=== PATIENT | female | born 1950 | race Caucasian/White ===

== ENCOUNTER → 2018-02-26 | Outpatient (CLI) | payer MEDICARE, BC ==
[~2018-02-26] MED LIST: CRESTOR 10MG10 MG PO; LEVOXYL0.1 MG PO; MOBIC 7.5MG7.5 MG PO; NORCO 325 MG-7.1 TAB PO; PRILOSEC 20MG20 MG PO; ROXICODONE 55 MG/TAB PO; TUMS500 MG PO; ULTRAM 50MG TAB50 MG PO; VASOTEC 5MG5 MG/TAB PO; VITAMIN D 50,1.25 MG PO; XARELTO10 MG PO
== END ==
LOC: COL.RAD 11:32
DX: E04.1 Nontoxic single thyroid nodule (principal)
CPT/HCPCS: A9516